=== PATIENT | female | born 1925 | race Caucasian/White ===

== ENCOUNTER 2016-06-11 11:57 | Outpatient (CLI) ==
[2016-06-11 12:44] LABS: BILIRUBIN,URINE Negative (NEGATIVE); KETONES,URINE Negative (NEGATIVE); LEUKOCYTE ESTERASE ,URINE Trace (NEGATIVE); NITRITE,URINE Negative (NEGATIVE); PROTEIN,URINE Negative (NEGATIVE); URINE, BLOOD Negative (NEGATIVE)
[2016-06-11 12:47] LABS: ADD URINE MICROSCOPIC YES
== END 2016-06-11 11:58 | disposition home or self-care (01) ==
LOC: NONPT 11:57
PROVIDERS: ATTEND Family Medicine
DX: R53.1 Weakness (principal); R52 Pain, unspecified
CPT/HCPCS: 81001; 87086

== ENCOUNTER 2016-07-08 08:18 | Outpatient (CLI) ==
[2016-07-08 10:24] LABS: BILIRUBIN,URINE Negative (NEGATIVE); KETONES,URINE Negative (NEGATIVE); LEUKOCYTE ESTERASE ,URINE 1+ (NEGATIVE); NITRITE,URINE Negative (NEGATIVE); PH,URINE 6.5 (5-9); PROTEIN,URINE 2+ (NEGATIVE); URINE, BLOOD 2+ (NEGATIVE)
[2016-07-08 10:29] LABS: ADD URINE MICROSCOPIC YES
[2016-07-08 10:32] LABS: BACTERIA,URINE 4+ (NOT PRESENT)
== END 2016-07-08 08:19 | disposition home or self-care (01) ==
LOC: LAB 08:18
PROVIDERS: ATTEND Family Medicine
DX: N39.0 Urinary tract infection, site not specified (principal)
CPT/HCPCS: 81001; 87086; 87186